=== PATIENT | female | born 1970 | race Caucasian/White ===

== ENCOUNTER 2017-12-28 20:33 | Inpatient (IN) | payer OTHER ==
[~2017-12-28] VITALS: Ht 154.9 cm; Wt 47.6 kg
[2017-12-28 20:34] VITALS: BP 158/99
[2017-12-28] MEDS ORDERED: LUNESTA3 MG PO (20:47)
[2017-12-28] MEDS ORDERED: ALPRAZOLAM 0.0.25 M1 PO (20:47)
[2017-12-28 21:30] LABS: RBC 4.57 mil/uL (4.20-5.00)
[2017-12-28 21:34] LABS: ABSOLUTE NEUTROPHILS 2.5 thou/uL (1.4-8.2); BASOPHILS 0.5 % (0.0-2.0); EOSINOPHILS 0.3 % (0.0-3.0); HEMATOCRIT 42.3 % (37.0-47.0); HEMOGLOBIN 15.2 gm/dL (12.0-15.0); LYMPHOCYTES 22.7 % (24.0-44.0); MCH 33.3 pg (26.0-34.0); MCV 92.6 fL (80.0-100.0); MONOCYTES 11.8 % (1.0-8.0); PLATELET COUNT 141 thou/uL (150-400); POLYS 64.7 % (36.0-66.0); RDW 13.4 % (10.5-14.5); WBC 3.9 thou/uL (4.0-11.0)
[2017-12-28 21:35] LABS: CALCIUM 10.1 mg/dL (8.5-10.1); CREATININE 0.5 mg/dL (0.6-1.0)
[2017-12-28 21:40] LABS: ALBUMIN 4.1 g/dL (3.4-5.0); DIRECT BILIRUBIN 0.1 mg/dL (<0.1-0.3); POTASSIUM 2.9 mmol/L (3.5-5.1); TOTAL BILIRUBIN 0.9 mg/dL (<0.1-1.0); TOTAL PROTEIN 7.8 g/dL (6.4-8.2)
[2017-12-28 21:47] LABS: PROTIME 60.4 Seconds (9.3-11.4)
[2017-12-28 21:50] LABS: INR 6.1
[2017-12-28 21:53] LABS: AMP/METHAMP Negative (Negative); BARBITURATES Negative (Negative); BENZODIAZEPINES Negative (Negative); COCAINE Negative (Negative); METHADONE Negative (Negative); OPIATES Negative (Negative); PCP Negative (Negative)
[2017-12-28 22:48] VITALS: BP 120/81
[2017-12-28 22:56] VITALS: BP 120/81
[2017-12-28 23:35] VITALS: BP 133/93
[2017-12-29 05:25] VITALS: BP 159/99
[2017-12-29 06:16] LABS: HEMATOCRIT 36.8 % (37.0-47.0); MCH 33.3 pg (26.0-34.0); RBC 3.87 mil/uL (4.20-5.00); RDW 13.2 % (10.5-14.5); WBC 5.6 thou/uL (4.0-11.0)
[2017-12-29 06:22] LABS: HEMOGLOBIN 12.9 gm/dL (12.0-15.0)
[2017-12-29 06:29] LABS: PROTIME 11.9 Seconds (9.3-11.4)
[2017-12-29 06:32] LABS: INR 1.2
[2017-12-29 06:34] LABS: CREATININE 0.6 mg/dL (0.6-1.0); MAGNESIUM 1.6 mg/dL (1.8-2.4); POTASSIUM 3.2 mmol/L (3.5-5.1)
[2017-12-29 06:36] LABS: CALCIUM 7.7 mg/dL (8.5-10.1)
[2017-12-29 07:49] VITALS: BP 173/174
[2017-12-29 11:45] VITALS: BP 155/109
[2017-12-29 16:11] VITALS: BP 150/123
[2017-12-29 19:50] VITALS: BP 143/97
[2017-12-29 20:02] LABS: CALCIUM 8.6 mg/dL (8.5-10.1); CREATININE 0.4 mg/dL (0.6-1.0)
[2017-12-30 04:50] VITALS: BP 135/95
[2017-12-30 05:43] LABS: HEMOGLOBIN 14.7 gm/dL (12.0-15.0); MCH 32.7 pg (26.0-34.0); MCHC 35.1 g/dL (28.0-37.0); MCV 93.1 fL (80.0-100.0); RBC 4.51 mil/uL (4.20-5.00); RDW 12.9 % (10.5-14.5); WBC 3.9 thou/uL (4.0-11.0)
[2017-12-30 06:11] LABS: ALBUMIN 2.9 g/dL (3.4-5.0); CALCIUM 8.4 mg/dL (8.5-10.1); CREATININE 0.4 mg/dL (0.6-1.0); TOTAL BILIRUBIN 0.8 mg/dL (<0.1-1.0); TOTAL PROTEIN 6.1 g/dL (6.4-8.2)
[2017-12-30 06:12] LABS: POTASSIUM 2.7 mmol/L (3.5-5.1)
[2017-12-30 07:46] VITALS: BP 140/103
[2017-12-30 11:05] LABS: ALPHA FETOPROTEIN-TUMOR* 4.8 ng/mL (0.0-8.3)
[2017-12-30 11:11] VITALS: BP 141/99
[2017-12-30 15:28] VITALS: BP 155/106
[2017-12-31 03:23] VITALS: BP 127/90
[2017-12-31 05:42] LABS: HEMATOCRIT 40.3 % (37.0-47.0); HEMOGLOBIN 14.1 gm/dL (12.0-15.0); MCH 33.2 pg (26.0-34.0); MCHC 35.1 g/dL (28.0-37.0); MCV 94.6 fL (80.0-100.0); RBC 4.26 mil/uL (4.20-5.00); RDW 12.9 % (10.5-14.5); WBC 4.1 thou/uL (4.0-11.0)
[2017-12-31 05:57] LABS: ALBUMIN 2.9 g/dL (3.4-5.0); CALCIUM 8.8 mg/dL (8.5-10.1); CREATININE 0.3 mg/dL (0.6-1.0); TOTAL BILIRUBIN 0.7 mg/dL (<0.1-1.0)
[2017-12-31 07:28] VITALS: BP 150/102
[2017-12-31 11:30] VITALS: BP 151/106
[2017-12-31 15:58] VITALS: BP 153/108
[2017-12-31 19:10] VITALS: BP 153/106
[2018-01-01 03:46] VITALS: BP 132/91
[2018-01-01 04:39] LABS: CALCIUM 8.8 mg/dL (8.5-10.1); CREATININE 0.4 mg/dL (0.6-1.0); POTASSIUM 3.1 mmol/L (3.5-5.1)
[2018-01-01 08:30] VITALS: BP 145/99
[2018-01-01] MEDS ORDERED: LOPRESSOR50 PO (08:47)
[2018-01-01] MEDS ORDERED: PEPCID20 MG PO (08:47)
[2018-01-01] MEDS ORDERED: VITAMIN B-1100 M2 PO (08:47)
[2018-01-01 09:53] VITALS: BP 145/99
== END 2018-01-01 10:59 | disposition home or self-care (01) | DRG 896 ==
LOC: ER 20:33 → EROBS 22:29 → 3W 22:29 → ENTRNSPT 01-01 10:50 → EDTRNSPTSTS 01-01 10:53 → 3W 01-01 10:59
PROVIDERS: Emergency Medicine; Hospitalist; Nurse Practitioner Acute Care
DX: F10.239 Alcohol dependence with withdrawal, unspecified (principal); G93.41 Metabolic encephalopathy; E87.1 Hypo-osmolality and hyponatremia; D68.9 Coagulation defect, unspecified; K76.9 Liver disease, unspecified; R56.9 Unspecified convulsions; Y90.0 Blood alcohol level of less than 20 mg/100 ml; R03.0 Elevated blood-pressure reading, without diagnosis of hypertension; E87.6 Hypokalemia; F17.210 Nicotine dependence, cigarettes, uncomplicated; Z79.899 Other long term (current) drug therapy
CPT/HCPCS: 10879

== ENCOUNTER → 2019-05-29 | Outpatient (CLI) | payer OTHER ==
[~2019-05-29] MED LIST: ALPRAZOLAM 0.0.25 M1 PO; LOPRESSOR50 PO; LUNESTA3 MG PO; PEPCID20 MG PO; VITAMIN B-1100 M2 PO
== END ==
LOC: CAT 11:38
DX: Z13.6 Encounter for screening for cardiovascular disorders (principal); I25.10 Atherosclerotic heart disease of native coronary artery without angina pectoris; E78.00 Pure hypercholesterolemia, unspecified